=== PATIENT | female | born 1950 | race Caucasian/White ===

== ENCOUNTER → 2017-06-18 | Outpatient (CLI) | payer MEDICARE ==
[~2017-06-18] MED LIST: ACID REFLUX PO; CETIRIZINE PO; FLEXERIL10 MG PO; GABAPENTIN PO; MEDROL DOSEPAK4 MG PO; MEDROL PO; MEDROL4 MG/DOSE- PO; MELOXICAM PO; MOBIC15 MG; NAPROSYN500 MG PO; NEURONTIN; NORFLEX100 M1 PO; PRAVACHOL; PRAVASTATIN PO; SERTRALINE PO; TRAZODONE; TRAZODONE PO; VOLTAREN75 MG PO; ZOLOFT; ZYRTEC
--- NOTE | ~2017-06-18 | MR112 ---
[facility] A Service of [facility] RADIOLOGY TEXT RESULTS PATIENT: YULISA XIAO LOCATION: [facility] : 54 UNIT #: [id number] AGE: [address]: Moose Smith II, MD SEX: F ORDER DR: [id number] [place] [id number] MR#: [id number] #: [id number] NAME: YULISA XIAO. : 1950 SEX: F STUDY DATE/TIME: 06/18/2017 15:20 UNIT: [facility] ROOM: STUDY DESCRIPTION: MR Lumbar WWo Contrast Attending Physician: Moose Smith II., M.D. Referring Physician: Moose Smith II., M.D. Ordering Physician: Moose Smith II., M.D. Primary Care Physician: Oscar San M.D. MRI CENTER REPORT This report is preliminary unless electronic signature is present. EXAM Lumbar spine MRI with and without contrast HISTORY Chronic low back pain for greater than 3 years. Pain radiates down right leg and has also left leg numbness. No known injury, prior surgery or cancer history. COMMENT MRI of the lumbar spine performed prior to and following the intravenous administration of 10 mL of MultiHance. The study is motion limited despite repeating portions of the examination. Plain film comparison is from 08/14/2016. There is subtle about 2 mm degenerative anterolisthesis of L3 on L4 secondary to facet arthritis. There is multilevel intervertebral disc desiccation, endplate spondylosis and loss of intervertebral disc height most severe at the L4-5 level where there is also predominantly type 1 marrow endplate degenerative change. Conus medullaris terminates at L1-2 and is normal. At L1-2, mild bilateral facet degenerative change with mild concentric disc bulge and minor endplate spondylosis. There is a tiny [id number] paramedian extrusion extending cephalad from the disc remaining contiguous with it. There is no central canal stenosis. Foraminal impingement is not significant. At L2-3, mild facet degenerative change bilaterally. There is a concentric disc bulge with superimposed broad posterior extrusion right paramedian in location. This results in mass effect on the expected location of the right L3 root in the right lateral recess. There is milder mass effect on the left L3 root and the left lateral recess and overall mild central canal stenosis. There is mild bilateral inferior STS. [facility] A Service of [facility] RADIOLOGY TEXT RESULTS PATIENT: YULISA XIAO LOCATION: [facility] : 54 UNIT #: [id number] AGE: [address]: Moose Smith II, MD SEX: F ORDER DR: foraminal narrowing. At L3-4, there is moderate bilateral facet degenerative change which accounts for the anterolisthesis of L3 on L4. There is a mild broad-based posterior disc bulge and combination of findings result in very mild canal stenosis with mild mass effect on the anterior thecal sac and bilateral-lateral recesses. Mild left inferior foraminal narrowing. At L4-5, [id number] right and moderate to severe left-sided facet arthritis with concentric desiccated disc bulging, endplate spondylosis and broad superimposed right paramedian to posterolateral extrusion. There is mild mass effect on right greater than left lateral recess expected location L5 roots and mild canal stenosis. Additionally, there is mild right and moderate left-sided foraminal impingement. At L5-S1, fairly severe right and more moderate left-sided facet arthritis with moderate ligamentum flavum thickening. There is a broad-based posterior disc protrusion superimposed upon a mild concentric disc bulge. Disc protrusion is more prominent to the right than the left and there is mass effect on right greater than left lateral recess expected location of the S1 roots. Very mild canal stenosis. Mild left and more moderate right-side foraminal narrowing present. There is some arthritis partly seen in the left side sacroiliac joint. Following contrast administration, there is no pathologic intracanalicular enhancement. There is nothing to suggest arachnoiditis. IMPRESSION Multilevel lumbar degenerative changes are detailed above with multilevel mild canal stenosis. Up to moderate foraminal impingement seen. Marrow endplate edema is most prominent at L4-5. Please refer to the [id number] discussion and correlate with symptoms. There is subtle degenerative anterolisthesis of L3 on L4 secondary to facet arthritis. Dictated by... Stephie Workman M.D. THIS IS AN ELECTRONICALLY VERIFIED REPORT Stephie Workman M.D. at 06/21/2017 5:20 PM TARSHA/sharron TD: 06/21/2017 14:22 JOB #: [id number] MRI [facility]ENTER REPORT Page 1 of 1
[2017-06-18 17:45] LABS: POC - CREATININE 1.02 mg/dL (0.44-1.03)
== END | disposition home or self-care (01) ==
LOC: SMRI 06-17 11:00
PROVIDERS: Psychiatry & Neurology Neurology
DX: R20.0 Anesthesia of skin (principal); M47.896 Other spondylosis, lumbar region; M48.06 Spinal stenosis, lumbar region; R60.0 Localized edema
CPT/HCPCS: 72158; 82565; A9581